=== PATIENT | female | born 2000 | race Two or more races ===

== ENCOUNTER 2023-03-08 18:40 | Emergency (ER) | payer MEDICAID ==
[~2023-03-08] VITALS: Ht 162.6 cm; Wt 92.5 kg
[2023-03-08 18:58] VITALS: BP 163/90; TEMP 98.6
--- NOTE | 2023-03-08 19:55 | NUR ---
TAKEN TO XRAY
--- NOTE | 2023-03-08 21:21 | NUR ---
Patient discharged to home in stable condition. Written and verbal after care instructions given. Patient verbalizes understanding of instruction.
== END 2023-03-08 21:21 | disposition home or self-care (01) ==
LOC: ER 18:42
DX: S23.3XXA Sprain of ligaments of thoracic spine, initial encounter (principal); S43.492A Other sprain of left shoulder joint, initial encounter; S29.8XXA Other specified injuries of thorax, initial encounter; V89.2XXA Person injured in unspecified motor-vehicle accident, traffic, initial encounter; Y93.89 Activity, other specified; Y92.89 Other specified places as the place of occurrence of the external cause; Y99.8 Other external cause status
CPT/HCPCS: 71100-TC; 72070-TC; 73030-TC